=== PATIENT | male | born 1970 | race Two or more races ===

== ENCOUNTER → 2019-10-16 | Outpatient (CLI) | payer OTHER ==
[~2019-10-16] MED LIST: ALLO300T PO; CHOL10003 PO; HYDR200T72 PO; METH2.5T PO; OMEG1CAP23 PO; folic acid PO
== END | disposition home or self-care (01) ==
LOC: STAR 10:17
PROVIDERS: ATTEND Orthopaedic Surgery
DX: Z01.812 Encounter for preprocedural laboratory examination (principal); Z20.828 Contact with and (suspected) exposure to other viral communicable diseases; M06.322 Rheumatoid nodule, left elbow
CPT/HCPCS: 36415; 87635

== ENCOUNTER 2019-10-21 09:54 | Day surgery (SDC) | payer OTHER ==
[~2019-10-21] VITALS: Ht 170.2 cm; Wt 79.0 kg
[~2019-10-21 09:54] MED LIST changes: +BUPIVACAINE/PF 0.5% ONE; +LIDOCAINE 1%, 20ML ONE
[2019-10-21] MEDS ORDERED: LACTATED RINGERS 1,000 ML IV SCH (10:34)
[2019-10-21 10:45] VITALS: BP 140/90
[2019-10-21] MEDS ORDERED: CHLORHEXIDINE 15 ML UDC MM ONE (11:00)
[2019-10-21] MEDS ORDERED: FENTANYL PF 100 MCG/2ML ONE (11:50)
[2019-10-21] MEDS ORDERED: MIDAZOLAM 1 MG/ML, 2ML ONE (11:50)
[2019-10-21] MEDS ORDERED: DEXAMETHASONE 4 MG/ML, 1ML ONE ×2 (11:52→11:58)
[2019-10-21] MEDS ORDERED: ONDANSETRON 2MG/ML, 2ML ONE ×2 (11:52→11:58)
[2019-10-21] MEDS ORDERED: PROPOFOL 10 MG/ML, 20ML ONE (11:58)
[2019-10-21] MEDS ORDERED: CEFAZOLIN 1,000 MG ONE (11:58)
[2019-10-21] MEDS ORDERED: BUPIVACAINE/PF 0.5% INFIL ONE (12:12)
[2019-10-21] MEDS ORDERED: LIDOCAINE 1%, 20ML INFIL ONE (12:13)
[2019-10-21] MEDS ORDERED: MIDAZOLAM 1 MG/ML, 2ML IV PRN (12:30)
[2019-10-21] MEDS ORDERED: DIAZEPAM 5 MG/ML, 2ML IVPush PRN (12:30)
[2019-10-21] MEDS ORDERED: PROMETHAZINE 12.5 MG SUPP PR PRN (12:30)
[2019-10-21] MEDS ORDERED: OXYcodone 5 MG/5 ML ORAL.SOL UDC PO PRN (12:30)
[2019-10-21] MEDS ORDERED: PROMETHAZINE 25 MG/ML, 1ML IVPush PRN (12:30)
[2019-10-21] MEDS ORDERED: FENTANYL PF 100 MCG/2ML IV PRN (12:30)
[2019-10-21] MEDS ORDERED: ACETAMINOPHEN 325 MG TABLET PO PRN (12:30)
[2019-10-21] MEDS ORDERED: LABETALOL 5MG/ML, 20ML IV PRN (12:30)
[2019-10-21] MEDS ORDERED: MEPERIDINE/PF 25MG/0.5ML IVPush PRN (12:30)
[2019-10-21] MEDS ORDERED: DIPHENHYDRAMINE 50 MG/ML, 1ML IVPush PRN (12:30)
[2019-10-21] MEDS ORDERED: EPHEDRINE 50 MG/ML, 1ML IVPush PRN (12:30)
[2019-10-21] MEDS ORDERED: ALBUTEROL SULFATE 2.5 MG/3 ML NPPB PRN (12:30)
[2019-10-21] MEDS ORDERED: HYDROmorphone 1 MG/ML, 1ML INJ IVPush PRN (12:30)
[2019-10-21] MEDS ORDERED: hydrALAzine 20 MG/ML, 1ML IV PRN (12:30)
[2019-10-21] MEDS ORDERED: ONDANSETRON 2MG/ML, 2ML IVPush PRN (12:30)
== END 2019-10-21 14:30 | disposition home or self-care (01) ==
LOC: OUT 09:54
PROVIDERS: ATTEND Orthopaedic Surgery
DX: M06.322 Rheumatoid nodule, left elbow (principal); M06.321 Rheumatoid nodule, right elbow; M06.822 Other specified rheumatoid arthritis, left elbow; Z79.899 Other long term (current) drug therapy
CPT/HCPCS: 24120; 88305; J0690; J1100; J2250; J2405; J2704; J3010; J7120